=== PATIENT | female | born 1990 | race Caucasian/White ===

== ENCOUNTER 2020-10-20 16:59 | Outpatient (CLI) | payer OTHER ==
--- NOTE | 2020-10-21 08:39 | Ultrasound Report ---
PROCEDURE: OB First Trimester w/TV INDICATIONS: POSITIVE TEST OUTSIDE/PRIOR DATING DATA: Last menstrual period (LMP): 08/30/2020. LMP-based estimated date of delivery (JOSE): 06/06/2021. First dating scan (date and location): This study. Estimated date of delivery (JOSE) from first dating scan: 06/14/2021. TECHNIQUE: Real-time scanning was performed of the fetus and maternal pelvic organs, with image documentation. Endovaginal scanning was also performed to better visualize the fetus and maternal ovaries. COMPARISON: None FINDINGS: Embryo: There is a single living intrauterine gestation with crown-rump length 4 mm which correlates with a gestational age of 6 weeks 1 day, +/- 5 days. cardiac activity at 131 bpm is present. N ote is made of what appears to be a small subchorionic hemorrhage adjacent to the gestational sac syed suring 2.5 x 2.1 x 4.4 cm Measurement variability in dating: +/- 4 weeks by LMP, +/- 7 days by mean sac diameter (use before 6 weeks gestation if crown-rump length not able to be measured), +/- 5 days by crown-rump length (6-12 weeks gestation). Maternal organs: Ovaries normal considering gestational status.. IMPRESSION: Single living intrauterine gestation, with current estimated gestational age of 6 weeks 1 day and del anh date project be centered on 06/14/2021, +/- 5 days. Small adjacent subchorionic hemorrhage ( "i mplantation hemorrhage"). Reviewed by: Henry Duval MD on 10/21/2020 8:38 AM PDT Approved by: Henry Duval MD on 10/21/2020 8:38 AM PDT Station ID: [id number]
== END 2020-10-20 17:00 | disposition home or self-care (01) ==
LOC: DI 16:59
PROVIDERS: ATTEND Advanced Practice Midwife
DX: O20.9 Hemorrhage in early pregnancy, unspecified (principal); Z3A.01 Less than 8 weeks gestation of pregnancy

== ENCOUNTER 2020-10-31 08:00 | Outpatient (CLI) | payer OTHER ==
[2020-10-31 19:32] LABS: MUDS CUTOFF CONCENTRATIONS CUTOFF CONC BELOW:
[2020-10-31 19:45] LABS: BILIRUBIN,URINE NEGATIVE (NEGATIVE); GLUCOSE, URINE (UA) NEGATIVE (NEGATIVE); KETONES,URINE (UA) TRACE mg/dL (NEGATIVE); LEUKOCYTE ESTERASE, URINE NEGATIVE (NEGATIVE); NITRITE,URINE NEGATIVE (NEGATIVE); OCCULT BLOOD,URINE NEGATIVE (NEGATIVE); PH,URINE 7.5 PH (5.0-7.5); PROTEIN,URINE NEGATIVE (NEGATIVE); UROBILINOGEN,URINE 0.2 (NORMAL) E.U./dL (NORMAL)
[2020-10-31 19:48] LABS: CLARITY,URINE CLOUDY (CLEAR)
[2020-10-31 19:57] LABS: AMPHETAMINE SCREEN,URINE NEGATIVE (NEGATIVE); BARBITURATE SCREEN,UR NEGATIVE (NEGATIVE); BENZODIAZEPINES SCREEN, URINE NEGATIVE (NEGATIVE); COCAINE SCREEN URINE NEGATIVE (NEGATIVE); METHADONE SCREEN, URINE NEGATIVE (NEGATIVE); METHAMPHETAMINES SCREEN, URINE NEGATIVE (NEGATIVE); OPIATE SCREEN, URINE NEGATIVE (NEGATIVE); OXYCODONE SCREEN, URINE NEGATIVE (NEGATIVE); PROPOXYPHENE SCREEN, URINE NEGATIVE (NEGATIVE); THC CANNABINOID SCREEN, URINE NEGATIVE (NEGATIVE); TRICYCLIC ANTIDEPRESSANT,URINE NEGATIVE (NEGATIVE)
[2020-10-31 20:04] LABS: AMORPHOUS SEDIMENT,UR Few /LPF; BACTERIA,URINE Rare /HPF (None Seen); RBC,URINE None Seen /HPF (0-5); SQUAMOUS EPITHELIAL CELL,UR FEW Squamous (<= Few); WBC,URINE 0-3 /HPF (0-5)
== END 2020-10-31 23:59 | disposition home or self-care (01) ==
LOC: LAB.R 08:00
PROVIDERS: ATTEND Advanced Practice Midwife
DX: Z34.90 Encounter for supervision of normal pregnancy, unspecified, unspecified trimester (principal); Z36.89 Encounter for other specified antenatal screening
CPT/HCPCS: 80306; 81001; 87086

== ENCOUNTER 2020-11-29 13:32 | Outpatient (CLI) | payer OTHER ==
[2020-11-29 13:55] LABS: BASOPHILS # (AUTO) 0.1 10^3/uL (0.0-0.1); BASOPHILS % (AUTO) 0.5 %; EOSINOPHILS # (AUTO) 0.6 10^3/uL (0.0-0.7); EOSINOPHILS % (AUTO) 6.4 %; HCT - HEMATOCRIT 36.9 % (37.0-47.0); HGB - HEMOGLOBIN 12.5 g/dL (12.0-16.0); LYMPHOCYTES # (AUTO) 1.4 10^3/uL (1.5-3.5); LYMPHOCYTES % (AUTO) 14.1 %; MEAN CORPUSCULAR HEMOGLOBIN 30.3 pg (27.0-31.0); MEAN CORPUSCULAR HGB CONC 33.9 g/dL (32.0-36.0); MEAN CORPUSCULAR VOLUME 89.3 fL (81.0-99.0); MEAN PLATELET VOLUME 10.7 fL (7.9-10.8); MONOCYTES # (AUTO) 0.6 10^3/uL (0.0-1.0); MONOCYTES % (AUTO) 6.1 %; NEUTROPHILS % (AUTO) 72.6 %; PLT - PLATELET COUNT 250 10^3/uL (130-450); RED BLOOD COUNT 4.13 10^6/uL (4.20-5.40); RED CELL DISTRIBUTION WIDTH 12.7 % (12.0-15.0); WHITE BLOOD COUNT 9.7 x10^3/uL (4.8-10.8)
[2020-11-30 11:12] LABS: HEPATITIS B SURFACE ANTIGEN NON-REACTIVE (NON-REACTIVE); HEPATITIS C ANTIBODY NON-REACTIVE (NON-REACTIVE)
[2020-11-30 15:21] LABS: HIV AG/AB 4TH GEN NON-REACTIVE (NON-REACTIVE)
== END 2020-11-29 13:33 | disposition home or self-care (01) ==
LOC: LAB 13:32
PROVIDERS: ATTEND Radiology Diagnostic Radiology
DX: Z34.00 Encounter for supervision of normal first pregnancy, unspecified trimester (principal); Z36.89 Encounter for other specified antenatal screening
CPT/HCPCS: 36415; 85025; 86592; 86762; 86769; 86787; 86803; 86850; 86900; 86901; 87340; 87389

== ENCOUNTER 2021-01-25 13:45 | Outpatient (CLI) | payer OTHER ==
--- NOTE | 2021-01-26 16:22 | Ultrasound Report ---
PROCEDURE: OB Detailed Eval INDICATIONS: SUPERVISION NORMAL OUTSIDE/PRIOR DATING DATA: Last menstrual period (LMP): 08/30/2020. LMP-based estimated date of delivery (JOSE): 06/06/2021. First dating scan (date and location): 10/20/2020. Estimated date of delivery (JOSE) from first dating scan: 06/14/2021. The below data below was generated using the ultrasound JOSE of 06/14/2021 TECHNIQUE: Real-time scanning was performed of the fetus, with image documentation and biometric measurements. Endovaginal scanning: COMPARISON: 10/20/2020. FINDINGS: General: A single living intrauterine gestation is present. Presentation: Vertex Placenta: Placental position is posterior, without previa. Amniotic fluid index: 14.0 cm, 5-24 cm normal.. heart rate: 145 beats per minute. Maternal cervical canal: Closed and 5.2 cm long; normal length is 2.5 cm or more. biometrics: Biparietal diameter: 20 weeks 1 day Head circumference: 19 weeks 6 days Abdominal circumference: 20 weeks 1 day Femur length: 19 weeks 6 days Estimated gestational age from initial scan: 20 weeks 0 days. Composite gestational age from present scan: 20 weeks 0 days Estimated weight and percentile: 335 g; 54th percentile Measurement variability in biometric dating: +/- 10 days from 12-20 weeks gestation, +/- 2 weeks from 20-30 weeks gestation, +/- 3 weeks at 30 weeks gestation or later. Anatomic survey: Neuro: Ventricles are normal at less than 10 mm. Cisterna magna is normal at 3-11 mm. Cerebellum i s normal in size and morphology. Nuchal skin fold: Normal at less than 6 mm between 14 and 20 weeks gestational age. Face: Nose and lips, facial profile are normal. Spine: No evidence for spina bifida. Heart: 4-chambered heart is present with normal ventricular outflow tracts. Diaphragm: Diaphragm is intact. Stomach: Left-sided stomach is present. Kidneys: No hydronephrosis. Normal is less than 5 mm in 2nd trimester, less than 7 mm in 3rd trimester. Cord: 3 vessel cord has orthotopic insertion. Bladder: Normal in size. Extremities: All 4 extremities are visualized. IMPRESSION: 1. Single living intrauterine gestation with appropriate interval growth. 2. Normal anatomic survey. Reviewed by: Isela Calhoun MD, PhD on 01/26/2021 4:21 PM PDT Approved by: Isela Calhoun MD, PhD on 01/26/2021 4:21 PM PDT Station ID: [id number]
== END 2021-01-25 13:46 | disposition home or self-care (01) ==
LOC: DI 13:45
PROVIDERS: ATTEND Nurse Practitioner Obstetrics & Gynecology
DX: Z34.02 Encounter for supervision of normal first pregnancy, second trimester (principal)

== ENCOUNTER 2021-03-20 10:30 | Outpatient (CLI) | payer OTHER ==
[2021-03-20 11:45] LABS: BASOPHILS # (AUTO) 0.1 10^3/uL (0.0-0.1); BASOPHILS % (AUTO) 0.5 %; EOSINOPHILS # (AUTO) 0.3 10^3/uL (0.0-0.7); EOSINOPHILS % (AUTO) 3.7 %; HCT - HEMATOCRIT 37.3 % (37.0-47.0); HGB - HEMOGLOBIN 12.6 g/dL (12.0-16.0); LYMPHOCYTES # (AUTO) 1.4 10^3/uL (1.5-3.5); LYMPHOCYTES % (AUTO) 15.3 %; MEAN CORPUSCULAR HEMOGLOBIN 31.2 pg (27.0-31.0); MEAN CORPUSCULAR HGB CONC 33.8 g/dL (32.0-36.0); MEAN CORPUSCULAR VOLUME 92.3 fL (81.0-99.0); MEAN PLATELET VOLUME 10.4 fL (7.9-10.8); MONOCYTES # (AUTO) 0.5 10^3/uL (0.0-1.0); MONOCYTES % (AUTO) 5.8 %; NEUTROPHILS # (AUTO) 6.8 10^3/uL (1.5-6.6); NEUTROPHILS % (AUTO) 73.7 %; PLT - PLATELET COUNT 226 10^3/uL (130-450); RED BLOOD COUNT 4.04 10^6/uL (4.20-5.40); RED CELL DISTRIBUTION WIDTH 12.8 % (12.0-15.0); WHITE BLOOD COUNT 9.2 x10^3/uL (4.8-10.8)
== END 2021-03-20 10:31 | disposition home or self-care (01) ==
LOC: LAB 10:30
PROVIDERS: ATTEND Nurse Practitioner Obstetrics & Gynecology
DX: Z34.90 Encounter for supervision of normal pregnancy, unspecified, unspecified trimester (principal); Z36.89 Encounter for other specified antenatal screening
CPT/HCPCS: 36415; 82950; 85025

== ENCOUNTER 2021-05-17 08:00 | Outpatient (CLI) | payer OTHER | END 2021-05-17 23:55 | disposition home or self-care (01) | LOC: LAB.WC 08:00 | PROVIDERS: ATTEND Nurse Practitioner Obstetrics & Gynecology | DX: Z36.85 Encounter for antenatal screening for Streptococcus B (principal) | CPT/HCPCS: 87797 ==

== ENCOUNTER 2021-06-21 07:30 | Inpatient (IN) | payer OTHER ==
[2021-06-21] MEDS ORDERED: OXYTOCIN/SODIUM CHLORIDE 500 ML IV PRN (08:29)
[2021-06-21] MEDS ORDERED: LIDOCAINE-MPF 1% 30 ML VIAL ID PRN (08:29)
[2021-06-21] MEDS ORDERED: CARBOPROST TROMETHAMINE 250 MCG/ML AMP IM PRN (08:29)
[2021-06-21] MEDS ORDERED: ONDANSETRON 4 MG/2 ML VIAL IVP PRN ×3 (08:29→17:41)
[2021-06-21] MEDS ORDERED: miSOPROStoL 200 MCG TABLET BC PRN (08:29)
[2021-06-21] MEDS ORDERED: OXYTOCIN 10 UNIT/ML VIAL IM PRN (08:29)
[2021-06-21] MEDS ORDERED: SODIUM CHLORIDE FLUSH 0.9% 10 ML SYRINGE IVP PRN (08:29)
[2021-06-21] MEDS ORDERED: METHYLERGONOVINE 0.2 MG/ML VIAL IM PRN (08:29)
[2021-06-21] MEDS ORDERED: fentaNYL 100 MCG/2 ML VIAL IVP PRN (08:29)
[2021-06-21] MEDS ORDERED: TRANEXAMIC ACID IN NACL 1,000 MG/100 ML BAG IV PRN (08:29)
--- NOTE | 2021-06-21 08:33 | HISTORY & PHYSICAL EXAMINATION ---
Admit History - Visit Reason Visit Reason: Other - : 2 Parity: 1 Premature: 0 Ectopic: 0 : 0 Care: positive: [facility] Risk/History: positive: None Complications This : positive: None Smoking Status: Never smoker - Mother's Labs Mother's Blood Type: positive: AB Mother's RH: positive: Positive GBS: positive: Group B Step Negative Rubella Status: positive: Immune Review of Systems - Constitutional Constitutional: denies: Fever, Chills, Malaise - Eyes Eyes: denies: Blurred vision, Spots in vision, Dipolpia - Cardiovascular Cariovascular: denies: Irregular heart rate, Palpitations, Chest pain, Edema - Respiratory Respiratory: denies: Cough, SOB at rest - Integumentary Integumentary: denies: Rash, Pruritis - Neurological Neurological: denies: Headache Physical - Abdominal Exam Contraction Frequency (min/apart): intermittent Contraction Intensity: positive: Mild Uterine Resting Tone: positive: Soft - Monitoring Heart Rate Baseline: 150 Strip Review: positive: Category I - Presentation Presentation: positive: Vertex - Vaginal Exam Membranes: positive: Membranes intact Dilation (in cm): 3-4 Effacement (%): 75 Station: positive: -2 Cervical Position: positive: Posterior - Speculum Exam Speculum Exam Performed: positive: No Plan for Labor - Plan For Labor I expect patient to be DC'd or transferred within 96 hours.: Yes Plan for Labor: Demetrice is a 30yo @ 41.0wks gestation by 6.1wk U/S who presents today to [facility] for medical induction of labor secondary to postdates . Upon arrival she is noted to have occasional contractions which she does not feel. SVE 3-4/75/-2, posterior, soft, and vertex. AROM occurred at 0822 and was noted to be a small amount of clear fluid. She is supported by her her Ildefonso today and her mood is good. She has been a patient of [facility] for the duration of her which has remained uncomplicated. She has been admitted for medical induction of labor. AROM will be followed by 4 hours of expectant management and then initiation of pitocin with titration per protocol if needed. She denies questions or concerns at this time. Dating criteria: LMP 08/30/2020 (JOSE by LMP 06/06/2021) Initial U/S @ 6.1wks not c/w LMP dating (JOSE by initial U/S 06/14/2021) Serial exams - agree OB Hx: G1: 06/06/2018 @ 41.0wks gestation, epidural. Female 6lb8oz. 2nd degree laceration - uncomplicated G2: Current Medications: PNV; probiotic PRN Allergies: NKDA PMHx: no significant Surgical Hx: Repair broken femur (1996) Social Hx: Never smoker. No ETOH or IVDA. Ildefonso. Family Hx: Strove/CVA - PGM, PGF; Arthritis - PGM; Esophageal cancer - MGF course: LMP 08/30/2020 JOSE by LMP Initial ultrasound @ 6.1wks gestation not c/w LMP dating. JOSE by initial ultrasound 06/14/2021. Final JOSE 06/14/2021 AB pos/Rubella equivocal VZV: non-immune Genetic testing: declined FAS: Posterior placenta. Efw 54%. 3VC. ERIKA 14.0 Glucola- 124 Influenza: 04/27/21 COVID VACC- YES, 02/08, 03/06 TDAP 03/23 GBS @ 36 wks- NEGATIVE HSV: denies self and partner Breast pump Rx- declines MOD: . FOB Ildefonso. 2.5yo [place]. Girl: Zhane. "Wait and see" pp contraception: NFP. Withdrawal. Accepting of if happens. pap: 10/31/2020- WNL Physical Exam: Normocephalic, atraumatic Heart RRR w/o M/G/R Lungs CTAB Abdomen gravid, soft, nontender EFW 3400g FHR baseline 150, moderate variability, + accels, no decels Contractions palpate mild occasionally and are not appreciated by pt. SVE 3-4/75/-2, posterior, soft. Vertex. AROM occurred at 0822 and was noted to be a small amount of clear fluid. Bilateral LE's trace edema. Mood is good. Assessment: 30yo @ 41.0wks gestation by 6.1wk U/S Postdates Medical induction of labor GBS neg FHR Category I Plan: Expectant management x 4 hours followed by initiation of pitocin for labor augmentation with titration per protocol PRN. Continuous monitoring Encouraged ambulation and position changes. Jacuzzi PRN. Nitrous oxide PRN. Epidural per maternal request. Anticipate . Pt verbalized understanding and agrees to above plan. She denies further questions or concerns at this time.
[2021-06-21 09:25] LABS: BASOPHILS # (AUTO) 0.1 10^3/uL (0.0-0.1); BASOPHILS % (AUTO) 0.6 %; EOSINOPHILS # (AUTO) 0.3 10^3/uL (0.0-0.7); EOSINOPHILS % (AUTO) 2.6 %; HGB - HEMOGLOBIN 12.4 g/dL (12.0-16.0); LYMPHOCYTES # (AUTO) 1.7 10^3/uL (1.5-3.5); LYMPHOCYTES % (AUTO) 16.1 %; MEAN CORPUSCULAR HEMOGLOBIN 30.2 pg (27.0-31.0); MEAN CORPUSCULAR HGB CONC 32.6 g/dL (32.0-36.0); MEAN CORPUSCULAR VOLUME 92.5 fL (81.0-99.0); MEAN PLATELET VOLUME 11.2 fL (7.9-10.8); MONOCYTES # (AUTO) 0.7 10^3/uL (0.0-1.0); MONOCYTES % (AUTO) 6.4 %; NEUTROPHILS # (AUTO) 7.8 10^3/uL (1.5-6.6); NEUTROPHILS % (AUTO) 73.5 %; PLT - PLATELET COUNT 237 10^3/uL (130-450); RED BLOOD COUNT 4.11 10^6/uL (4.20-5.40); RED CELL DISTRIBUTION WIDTH 13.3 % (12.0-15.0); WHITE BLOOD COUNT 10.6 x10^3/uL (4.8-10.8)
[2021-06-21] MEDS ORDERED: OXYTOCIN/SODIUM CHLORIDE 500 ML IV SCH (13:00)
[2021-06-21] MEDS: LACTATED RINGERS 1,000 ML IV SCH ×2 (13:10→18:06)
[2021-06-21] MEDS: SODIUM CHLORIDE FLUSH 0.9% 10 ML SYRINGE IVP SCH ×2 (13:13→15:32)
[2021-06-21] MEDS ORDERED: ROPIVACAINE 0.2% 200 MG/100 ML BAG EP ONE (16:56)
[2021-06-21] MEDS ORDERED: NALBUPHINE 10 MG/ML AMP IVP PRN ×2 (17:40→17:41)
[2021-06-21] MEDS ORDERED: diphenhydrAMINE INJ 50 MG/ML VIAL IVP PRN ×2 (17:40→17:41)
--- NOTE | 2021-06-21 17:40 | ANESTHESIA PROCEDURE NOTE ---
Anesthesia Epidural Template - Patient Report Patient Reports: positive: Pain controlled - Plan Plan: positive: Continue current management
--- NOTE | 2021-06-21 17:40 | ANESTHESIA ---
Pre-Anesthesia VS, & Labs - Diagnosis active labor - Procedure labor epidural Vital Signs: Temp Pulse Resp BP Pulse Ox 36.7 C 06/21/21 10:18 Height: 5 ft 4 in Weight (kg): 93.168 kg Body Mass Index: 35.2 BMI Classification: Obese - NPO Other Last Food Intake: ate lunch around noon - Is Patient ?: Yes - Lab Results Current Lab Results: Laboratory Tests 06/21/21 08:40: Blood Type AB POSITIVE, Antibody Screen NEGATIVE 06/21/21 08:40: WBC 10.6, RBC 4.11 L, Hgb 12.4, Hct 38.0, MCV 92.5, MCH 30.2, MCHC 32.6, RDW 13.3, Plt Count 237, MPV 11.2 H, Neut # (Auto) 7.8 H, Lymph # (Auto) 1.7, [place] # (Auto) 0.7, Eos # (Auto) 0.3, Baso # (Auto) 0.1, Absolute Nucleated RBC 0.00, Nucleated RBC % 0.0 Fish Bones: 06/21/21 08:40 Home Medications and Allergies Active Medications Carboprost Tromethamine (Carboprost Tromethamine 250 Mcg/Ml Amp) 250 mcg IM Q15M PRN PRN Reason: Step 4: Hemorrhage protocol Stop: 06/26/21 08:29 Fentanyl (Fentanyl 100 Mcg/2 Ml Vial) 50 mcg IVP Q1H PRN PRN Reason: PAIN Oxytocin/Sodium Chloride (Pitocin/Sodium Chloride) 500 mls @ 999 mls/hr IV PRN PRN; Protocol PRN Reason: POST- HEMORR PREVENTION Stop: 06/26/21 08:29 Tranexamic Acid (Tranexamic 1,000 Mg/100ml-Nacl) 1,000 mg in 100 mls @ 600 mls/hr IV .ONCE PRN PRN Reason: EBL >1200mL and within 3hr Stop: 06/26/21 08:29 Lactated Ringer's (Lr) 1,000 mls @ 100 mls/hr IV .Q10H INES Last Admin: 06/21/21 13:10 Dose: 100 mls/hr Documented by: Oxytocin/Sodium Chloride (Pitocin/Sodium Chloride) 500 mls @ 2 mls/hr IV TITR INES; Protocol Last Titration: 06/21/21 16:30 Dose: 8 milliunit/min, 8 mls/hr Documented by: Lidocaine HCl (Lidocaine-Mpf 1% 30 Ml Vial) 30 ml ID .ONCE PRN PRN Reason: PERINEAL REPAIR Stop: 06/26/21 08:29 Methylergonovine Maleate (Methylergonovine 0.2 Mg/Ml Vial) 0.2 mg IM .ONCE PRN PRN Reason: Step 2: Hemorrhage protocol Stop: 06/26/21 08:29 Misoprostol (Misoprostol 200 Mcg Tablet) 800 mcg BC .ONCE PRN PRN Reason: Step 3: Hemorrhage protocol Stop: 06/26/21 08:29 Ondansetron HCl (Ondansetron 4 Mg/2 Ml Vial) 4 mg IVP Q4HR PRN PRN Reason: Nausea / Vomiting Oxytocin (Oxytocin 10 Unit/Ml Vial) 10 unit IM .ONCE PRN PRN Reason: Step one: If no IV access Stop: 06/26/21 08:29 Sodium Chloride (Sodium Chloride Flush 0.9% 10 Ml Syringe) 10 ml IVP 0100,0900,1700 INES Last Admin: 06/21/21 15:32 Dose: Not Given Documented by: Sodium Chloride (Sodium Chloride Flush 0.9% 10 Ml Syringe) 10 ml IVP PRN PRN PRN Reason: NEEDED PER PROVIDER ORDERS Allergies/Adverse Reactions: Allergies Allergy/AdvReac Type Severity Reaction Status Date / Time No Known Drug Allergies Allergy Verified 06/21/21 11:03 Anes History & Medical History - Anesthetic History Anesthesia Complications: reports: No previous complications Family history of Anesthesia Complications: Denies Family history of Malignant Hyperthermia: Denies - Medical History Cardiovascular: reports: None Pulmonary: reports: None Smoking Status: Never smoker - Obstetrical History : 2 Parity: 1 Events: reports: None Complications: reports: None Exam General: Alert, Oriented x3, Cooperative Dental: WNL Mouth Openin Fingerbreadth Neck Mobility: Normal Mallampati classification: II Thyromental Distance: 4-6 cm Respiratory: Lungs clear Cardiovascular: Regular rate Plan Anesthesia Type: Epidural Consent for Procedure(s) Verified and Reviewed: Yes Code Status: Attempt Resuscitation ASA classification: 2-Mild systemic disease Is this case an emergency?: No
[2021-06-21] MEDS ORDERED: ROPIVACAINE 0.2% 200 MG/100 ML BAG EP PRN (17:41)
[2021-06-21] MEDS ORDERED: fentaNYL 100 MCG/2 ML VIAL ONE (19:38)
[2021-06-21] MEDS ORDERED: SODIUM CHLORIDE 0.9% 10 ML VIAL IVP ONE (19:38)
[2021-06-21] MEDS ORDERED: LIDOCAINE-PF 2% 10 ML AMP SUBQ ONE (19:39)
--- NOTE | 2021-06-21 19:41 | ANESTHESIA PROCEDURE NOTE ---
Anesthesia Epidural Template - Patient Report Patient Reports: positive: Inadequate control - Other Comments Other Comments: Patient rates contraction pain 8/10 with right side more painful compared to left. Epidural dosed with 5ml of 2% lidocaine, 100 mcg fentanyl, and 3ml of PF NS. After bolus, patient improved and rates pain 3/10.
--- NOTE | 2021-06-21 20:02 | PROVIDER PROGRESS NOTE ---
Labor Progress Note - Uterine Monitoring Uterine Monitoring Mode: positive: External toco Contraction Frequency (min/apart): 2-3 Contraction Intensity: positive: Strong Uterine Resting Tone: positive: Soft - Monitoring Monitor Mode: positive: External ultrasound Heart Rate Baseline: 145 Heart Rate Variability: positive: Moderate (6-25 bmp) Accelerations: positive: Present, 15x15 Decelerations: positive: None, Variable, Intermittent (<50% x20 min) Strip Review: positive: Category I - Vaginal Exam Dilation (in cm): 8 Effacement (%): 100 Station: 0 Cervical Position: Midposition - Labor Progress Note Labor Progress Note/Additional Text: S: Feeling comfortable with epidural. She desires to get a little sleep prior to pushing out a baby. supportive at the bedside. O: FHR baseline 145, moderate variability, + accels, no decels Contractions palpate strong every 2-4 minutes with soft resting tone SVE 8/100/0 Pitocin @ 8mU/mL A: 30yo @ 41.0wks gestation by 6.1wk U/S Postdates GBS neg Active labor P: Continue pitocin IOL with titration per protocol Continuous monitoring Maintain epidural for pain management. Anticipate .
[2021-06-21] MEDS ORDERED: HYDROCORTISONE 1% CREAM 28 GM TUBE PR PRN (21:21)
[2021-06-21] MEDS ORDERED: WITCH HAZEL/GLYCERIN 1 PAD TOP PRN (21:21)
--- NOTE | 2021-06-21 21:29 | DELIVERY NOTE ---
Delivery Note - Labor Labor: positive: Induced by oxytocin - Infant Delivery Method Delivery Method: positive: Spontaneous vaginal delivery - Presentation Presentation: positive: ROP - right occiput posterior - Nuchal Cord Nuchal Cord: positive: Present, Reduced - Amniotic Fluid Description Amniotic Fluid Description: positive: Clear - Episiotomy Type Episiotomy Type: positive: None - Laceration Laceration: positive: 1st degree - Suture Suture Type: positive: Vicryl Suture Size: positive: 2-0 - Delivery Outcome Delivery Outcome: positive: Livebirth - : positive: Placed in direct skin contact with mother, Bulb syringe, Stimulated, Warmed, [place] used [place] sex: positive: Female - Cord Cord: positive: 3 vessels - Placenta Placenta: positive: Intact, Spontaneous - Estimated Blood Loss Estimated Blood Loss (in cc): 200 - Post Delivery Events Post Delivery Events: positive: No post delivery events - Delivery Comments (Free Text/Narrative) Delivery Comments (Free Text/Narrative): Labor: This 30yo @ 41.0wks gestation by 6.1wk U/S presented [facility] 06/21/2021 @ 0730 for medical induction of labor secondary to postdates . Cervix was 3-4/75/-2, posterior and vertex. AROM occurred at 08 and was noted to be a small amount of clear fluid. FHR pattern demonstrated a Category I pattern throughout labor. Normal labor course. Pitocin initiated for labor augmentation for a maximum infusion rate of 8mU/mL. Pt progressed to c/c/+1 @ 2010 with onset of active pushing at 2014. : Normal of viable female named Zhane on 06/21/2021 @ 2028. Nuchal cord x 1 was easily reduced. The was placed on maternal abdomen, stimulated, dried, and placed skin to skin. Apgars were 8/8 at 1 and 5 minutes respectively. Pitocin initiated via IV for hemostasis. The umbilical cord was allowed to stop pulsating at which time it was doubly clamped by CNM and cut by FOB. 3VC. Cord blood was obtained. Fundal massage and gentle cord traction applied for active management of the third stage. Placenta delivered spontaneously and intact at 2037. EBL 200mL. Fourth stage: Uterine fundus firm and there is no excessive bleeding. The perineum, vagina, and cervix were inspected and noted to have a 1st degree perineal laceration which was repaired using a 2-[address]-1 needle, in standard fashion and under sterile conditions. Vaginal examination following repair was done. Tissues well approximated. initiated. Family bonding well. Both mother and baby were left in stable condition.
[2021-06-21] MEDS: ACETAMINOPHEN 500 MG TABLET PO SCH (22:17)
[2021-06-21] MEDS: IBUPROFEN 800 MG TABLET PO SCH (22:18)
[2021-06-21] MEDS: DOCUSATE SODIUM 100 MG CAPSULE PO SCH (22:18)
[2021-06-22] MEDS: IBUPROFEN 800 MG TABLET PO SCH ×4 (04:12→22:17)
[2021-06-22] MEDS: ACETAMINOPHEN 500 MG TABLET PO SCH ×3 (06:13→22:16)
[2021-06-22] MEDS: DOCUSATE SODIUM 100 MG CAPSULE PO SCH ×2 (08:59→22:16)
--- NOTE | 2021-06-22 12:26 | Discharge Plan ---
Discharge Plan Problem Reviewed?: Yes Disposition: Home, Self Care Condition: Good Diet: Regular Activity Restrictions: No Restrictions Shower Restrictions: No Driving Restrictions: No Instruction Topics: Vaginal After No Smoking: If you smoke, Please STOP! Call for help. Follow-up with: Mar Gallardo CNM, ARNP [Provider Admit Priv/Credential] - 1 Week
--- NOTE | 2021-06-22 12:34 | DISCHARGE SUMMARY ---
Discharge Summary Condition at Discharge: Good Discharge Disposition: 01 Home, Self Care - DIAGNOSES Admission Diagnoses: Date of Admission: 06/21/2021 Date of Discharge 06/22/2021 Diagnosis on Admission: 1. 30yo @ 41.0wks gestation by 6.1wk U/S 2. Postdates 3. Medical induction of labor 4. GBS neg 5. FHR Category I Diagnosis on Discharge 1. 30yo PPD#1 s/p TSVD viable female 2. 3. 1st degree laceration -intact 4. Normal recovery Brief History: She is a patient of [facility] who presented on 06/21/2021 for medical induction of labor secondary to postdates . SVE upon admission was 3-4/75/-2 and vertex. AROM occurred at 0822 for induction of labor followed by initiation of pitocin for labor augmentation with titration per protocol for a maximum infusion rate of 8mU/mL. She progressed to spontaneously deliver a viable female infant on 06/21/2021 @ 2028. Apgars were 8/8 at 1 and 5 minutes respectively. EBL 200mL. 1st degree perineal laceration was repaired in standard fashion and under sterile conditions. She has been doing well in her course. She is ambulating and tolerating a regular diet. She is urinating without difficulty and her lochia is normal. Her pain is well controlled with oral medications. She is without difficulty and she is bonding well with her baby. She desires to be discharged home today at 24 hours and feels very confident. She inten ds to follow up with myself at [facility] in 1 week for routine visit or sooner if needed. She has been given instructions to continue taking her vitamin while and to continue taking ibuprofen and tylenol OTC as needed for pain management. She has been given precautions to call if she has any worsening fevers, chills, abdominal pain, increased vaginal bleeding or foul smelling vaginal lochia. She verbalized understanding and agrees to above plan. She denies further questions or concerns at this time. Physical Exam: Normocephalic, atraumatic, heart RRR w/o M/G/R, lungs CTAB, abdomen soft and nontender with fundus firm at U, perineum intact, light lochia rubra, bilateral LE's trace edema. Mood is good. - ALLERGIES Allergies/Adverse Reactions: Allergies Allergy/AdvReac Type Severity Reaction Status Date / Time No Known Drug Allergies Allergy Verified 06/21/21 11:03 - LABS Result Diagrams: 06/21/21 08:40
[2021-06-22] MEDS ORDERED: VARICELLA VACCINE LIVE/PF 1,350 UNIT/0.5 ML VIAL SUBQ ONE (14:14)
[2021-06-22] MEDS ORDERED: MEASLES,MUMPS & RUBELLA VACC 0.5 ML VIAL SUBQ ONE (14:15)
[2021-06-22 22:20] VITALS: BP 128/77
== END 2021-06-22 22:30 | disposition home or self-care (01) | DRG 807 ==
LOC: WFO 07:30 → FBP 07:38 → WFO 08:28 → FBP 08:29
PROVIDERS: ADMIT Nurse Practitioner Obstetrics & Gynecology; ATTEND Nurse Practitioner Obstetrics & Gynecology
PROC: 10907ZC Drainage of Amniotic Fluid, Therapeutic from Products of Conception, Via Natural or Artificial Opening (ICD-10-PCS; principal; 2021-06-21)
PROC: 10E0XZZ Delivery of Products of Conception, External Approach (ICD-10-PCS; 2021-06-21)
PROC: 0HQ9XZZ Repair Perineum Skin, External Approach (ICD-10-PCS; 2021-06-21)
PROC: 3E033VJ Introduction of Other Hormone into Peripheral Vein, Percutaneous Approach (ICD-10-PCS; 2021-06-21)
DX: O48.0 Post-term pregnancy (principal); Z37.0 Single live birth; Z3A.41 41 weeks gestation of pregnancy; O70.0 First degree perineal laceration during delivery; O69.81X0 Labor and delivery complicated by cord around neck, without compression, not applicable or unspecified; O99.214 Obesity complicating childbirth
CPT/HCPCS: 36415; 85025; 86850; 86900; 86901; A9270; J7120

== ENCOUNTER 2021-06-26 17:20 | Observation (INO) | payer OTHER ==
--- NOTE | 2021-06-26 18:54 | ED Physician Documentation ---
History of Present Illness - Stated complaint Stated Complaint: HIP PX - Chief complaint Chief Complaint: Ext Problem - History obtained from History obtained from: Patient - Additonal information Additional information: now 5 days . C/O R hip pain posterior since hospital discharge. Much worse with walking. No hx hip issues. She has been noted to be hypertensive in the emergency department but denies headache, scotomata, seizures, urinary complaints or pedal edema. She did have an epidural. Seemed uncomplicated. Review of Systems Constitutional: denies: Fever, Chills Nose: reports: Reviewed and negative Cardiac: reports: Reviewed and negative Respiratory: reports: Reviewed and negative PD PAST MEDICAL HISTORY - Past Medical History Cardiovascular: None Respiratory: None - Allergies Allergies/Adverse Reactions: Allergies Allergy/AdvReac Type Severity Reaction Status Date / Time No Known Drug Allergies Allergy Verified 06/26/21 17:28 - Social History Smoking Status: Never smoker PD ED PE NORMAL - Vitals Vital signs reviewed: Yes - General General: Alert and oriented X 3, No acute distress - HEENT HEENT: PERRL, EOMI - Neck Neck: Supple, no meningeal sign, No bony TTP - Cardiac Cardiac: RRR, No murmur - Respiratory Respiratory: No respiratory distress, Clear bilaterally - Abdomen Abdomen: Non tender - Back Back: No CVA TTP, No spinal TTP, Other (She points to the right low back above the pelvic brim as the site of pain. The hip itself on the right is nontender no pain with internal or external rotation. No midline spinal tenderness no reproducible tenderness of the back.) - Derm Derm: Normal color, Warm and dry - Extremities Extremities: No edema, Other (The patient has equal and normal Achilles and patellar reflexes bilaterally. Normal sensation in all areas of the legs. Patient denies saddle anesthesia. Normal strength in flexion-extension at the ankles, knees, and flexion of the hips.) - Neuro Neuro: Alert and oriented X 3, Normal speech Results - Vitals Vitals: Vital Signs - 24 hr 06/26/21 06/26/21 06/26/21 17:28 18:48 20:45 Temperature 36.8 C Heart Rate 82 58 L 72 Respiratory 16 16 18 Rate Blood Pressure 158/91 H 161/92 H 142/68 H O2 Saturation 98 98 98 Oxygen O2 Source Room air - Labs Labs: Laboratory Tests 06/26/21 06/26/21 06/26/21 19:09 19:09 19:21 WBC 8.9 RBC 4.36 Hgb 13.4 Hct 40.2 MCV 92.2 MCH 30.7 MCHC 33.3 RDW 12.9 Plt Count 270 MPV 10.1 Neut # (Auto) 5.9 Lymph # (Auto) 1.8 [place] # (Auto) 0.7 Eos # (Auto) 0.4 Baso # (Auto) 0.1 Absolute Nucleated RBC 0.00 Nucleated RBC % 0.0 Sodium 136 Potassium 3.7 Chloride 102 Carbon Dioxide 26 Anion Gap 8.0 BUN 15 Creatinine 0.6 Estimated GFR (MDRD) 116 Glucose 98 Calcium 8.7 Total Bilirubin 0.5 AST 19 ALT 30 Alkaline Phosphatase 105 Total Protein 6.8 Albumin 3.2 Globulin 3.6 Albumin/Globulin Ratio 0.9 L Urine Color YELLOW Urine Clarity CLEAR Urine pH 7.0 Ur Specific [place] 1.020 Urine Protein NEGATIVE Urine Glucose (UA) NEGATIVE Urine Ketones NEGATIVE Urine Occult Blood MODERATE H Urine Nitrite NEGATIVE Urine Bilirubin NEGATIVE Urine Urobilinogen 0.2 (NORMAL) Ur Leukocyte Esterase NEGATIVE Urine RBC TNTC H Urine WBC 4-5 Ur Squamous Epith Cells RARE Squamous Urine Bacteria Rare Urine Mucus Few Strands Ur Microscopic Review INDICATED Urine Culture Comments NOT INDICATED U Random Total Protein 06/26/21 19:21 WBC RBC Hgb Hct MCV MCH MCHC RDW Plt Count MPV Neut # (Auto) Lymph # (Auto) [place] # (Auto) Eos # (Auto) Baso # (Auto) Absolute Nucleated RBC Nucleated RBC % Sodium Potassium Chloride Carbon Dioxide Anion Gap BUN Creatinine Estimated GFR (MDRD) Glucose Calcium Total Bilirubin AST ALT Alkaline Phosphatase Total Protein Albumin Globulin Albumin/Globulin Ratio Urine Color Urine Clarity Urine pH Ur Specific [place] Urine Protein Urine Glucose (UA) Urine Ketones Urine Occult Blood Urine Nitrite Urine Bilirubin Urine Urobilinogen Ur Leukocyte Esterase Urine RBC Urine WBC Ur Squamous Epith Cells Urine Bacteria Urine Mucus Ur Microscopic Review Urine Culture Comments U Random Total Protein 12 PD MEDICAL DECISION MAKING - ED course ED course: 30-year-old woman who is 5 days presents with hip pain that actually sounds like sciatica radiating from the posterior pelvic brim down into the buttock with some tingling in the leg. Examination is otherwise unremarkable but noted to be significantly hypertensive in the department. Records reviewed, she was not hypertensive during her recent stay for her giving . Labs are unremarkable from a preeclampsia/help standpoint, but her case was discussed by phone with Dr. Anderson, the retail loss prevention investigator on-call. She has had multiple systolics over 160 and when documents were learned of this she asked me to load her with magnesium and give her nifedipine 10 mg p.o. x1 and she plans to place the patient observation for magnesium loading and medication management. Departure - Departure Disposition: ED Place in Observation Clinical Impression: hypertension, Right sided sciatica Condition: Fair
[2021-06-26] MEDS ORDERED: HYDROcod/ACETAM 5/325 MG TABLET PO STA (19:00)
[2021-06-26 19:14] LABS: BASOPHILS # (AUTO) 0.1 10^3/uL (0.0-0.1); BASOPHILS % (AUTO) 0.7 %; EOSINOPHILS # (AUTO) 0.4 10^3/uL (0.0-0.7); EOSINOPHILS % (AUTO) 4.9 %; HCT - HEMATOCRIT 40.2 % (37.0-47.0); HGB - HEMOGLOBIN 13.4 g/dL (12.0-16.0); LYMPHOCYTES # (AUTO) 1.8 10^3/uL (1.5-3.5); MEAN CORPUSCULAR HEMOGLOBIN 30.7 pg (27.0-31.0); MEAN CORPUSCULAR HGB CONC 33.3 g/dL (32.0-36.0); MEAN CORPUSCULAR VOLUME 92.2 fL (81.0-99.0); MEAN PLATELET VOLUME 10.1 fL (7.9-10.8); MONOCYTES # (AUTO) 0.7 10^3/uL (0.0-1.0); MONOCYTES % (AUTO) 7.7 %; NEUTROPHILS # (AUTO) 5.9 10^3/uL (1.5-6.6); NEUTROPHILS % (AUTO) 66.4 %; PLT - PLATELET COUNT 270 10^3/uL (130-450); RED BLOOD COUNT 4.36 10^6/uL (4.20-5.40); RED CELL DISTRIBUTION WIDTH 12.9 % (12.0-15.0); WHITE BLOOD COUNT 8.9 x10^3/uL (4.8-10.8)
[2021-06-26 19:26] LABS: ALBUMIN 3.2 g/dL (3.2-5.5); ALBUMIN/GLOBULIN RATIO 0.9 (1.0-2.2); BILIRUBIN,TOTAL 0.5 mg/dL (0.2-1.0); CALCIUM 8.7 mg/dL (8.5-10.3); CREATININE 0.6 mg/dL (0.4-1.0); POTASSIUM 3.7 mmol/L (3.5-5.0); TOTAL PROTEIN 6.8 g/dL (6.7-8.2)
[2021-06-26 19:28] LABS: BILIRUBIN,URINE NEGATIVE (NEGATIVE); GLUCOSE, URINE (UA) NEGATIVE (NEGATIVE); KETONES,URINE (UA) NEGATIVE (NEGATIVE); LEUKOCYTE ESTERASE, URINE NEGATIVE (NEGATIVE); NITRITE,URINE NEGATIVE (NEGATIVE); OCCULT BLOOD,URINE MODERATE (NEGATIVE); PROTEIN,URINE NEGATIVE (NEGATIVE); UROBILINOGEN,URINE 0.2 (NORMAL) E.U./dL (NORMAL)
[2021-06-26 19:32] LABS: CLARITY,URINE CLEAR (CLEAR)
[2021-06-26 19:37] LABS: BACTERIA,URINE Rare /HPF (None Seen); MUCUS,URINE Few Strands; RBC,URINE TNTC /HPF (0-5); SQUAMOUS EPITHELIAL CELL,UR RARE Squamous (<= Few)
[2021-06-26] MEDS ORDERED: IOVERSOL 320 100 ML VIAL IVP ONE ×2 (20:21→21:07)
[2021-06-26] MEDS ORDERED: MAGNESIUM SULFATE 2 GRAM 2 GM/50 ML BAG IV ONE ×2 (20:59)
[2021-06-26] MEDS ORDERED: NIFEdipine 10 MG CAPSULE PO STA (21:03)
--- NOTE | 2021-06-26 21:03 | CT Report ---
PROCEDURE: Abdomen/Pelvis W INDICATIONS: low back pain, CONTRAST: IV CONTRAST: Optiray 320 ml: 100 PO CONTRAST: *NO PO CONTRAST TECHNIQUE: After the administration of contrast, 5 mm thick sections acquired from the diaphragms to the sym physis. 5 mm thick coronal and sagittal reformats were acquired. For radiation dose reduction, the following was used: automated exposure control, adjustment of mA and/or kV according to patient size . COMPARISON: None. FINDINGS: Image quality: Excellent. ABDOMEN: Lung bases: Lung bases are clear. Heart size is normal. Solid organs: Liver and spleen are normal in size and enhancement. Gallbladder Biliary system is non dilated. Pancreas enhances normally. No adrenal nodules. Kidneys demonstrate normal size an d enhancement, without hydronephrosis. Peritoneum and bowel: Bowel loops demonstrate normal wall thickness and caliber. No free fluid or a ir. Nodes and vessels: No retroperitoneal or mesenteric adenopathy by size criteria. Aorta and inferior vena cava are normal in size. Miscellaneous: No ventral hernias. PELVIS: Genitourinary: Bladder wall thickness is normal. Uterus is enlarged compatible with statu s. Miscellaneous: No inguinal hernias or adenopathy. Bones: No suspicious bony lesions. No vertebral body compression fractures. IMPRESSION: 1. No acute disease process. 2. Appendix is not visualized. No free fluid or inflammatory changes are identified adjacent to the c ecum. 3. No dilated loops of bowel. 4. No free fluid or air. 5. No hydronephrosis.. Reviewed by: Isela Calhoun MD, PhD on 06/26/2021 9:02 PM PST Approved by: Isela Calhoun MD, PhD on 06/26/2021 9:02 PM PST Station ID: [id number]
[2021-06-26] MEDS ORDERED: hydrALAZINE INJ 20 MG/ML VIAL IVP PRN ×2 (21:26)
[2021-06-26] MEDS ORDERED: LABETALOL 20 MG/4 ML SYRINGE IVP PRN ×2 (21:26)
[2021-06-26] MEDS ORDERED: ONDANSETRON 4 MG/2 ML VIAL IVP PRN (21:26)
[2021-06-26] MEDS ORDERED: SODIUM CHLORIDE FLUSH 0.9% 10 ML SYRINGE IVP PRN (21:26)
[2021-06-26] MEDS ORDERED: METOCLOPRAMIDE 10 MG/2 ML VIAL IVP PRN (21:26)
--- NOTE | 2021-06-26 21:30 | CT Report ---
PROCEDURE: LUMBAR SPINE W INDICATIONS: post back pain CONTRAST: IV CONTRAST: Optiray 320 ml: 100 CONTRAST: *NO PO CONTRAST TECHNIQUE: After the administration of intravenous Isovue contrast, 3 mm thick sections acquired from the T12 le kavya to the sacrum. Sagittal and coronal reformats were constructed. For radiation dose reduction, t he following was used: automated exposure control, adjustment of mA and/or kV according to patient s ize. COMPARISON: None. FINDINGS: Image quality: Excellent. Bones: There is normal bony alignment. No acute vertebral body compression fractures. No suspiciou s lytic or blastic bony lesions. No pars defects. Intervertebral disc height is normal in all levels . Soft tissues: No retroperitoneal masses or hematomas. Visualized aorta is normal in caliber. IMPRESSION: No fracture. No osseous lesion. If there is continued clinical concern for pathology, then MRI should be considered for further evaluation. Reviewed by: Isela Calhoun MD, PhD on 06/26/2021 9:28 PM PST Approved by: Isela Calhoun MD, PhD on 06/26/2021 9:28 PM PST Station ID: [email or web address]
[2021-06-26] MEDS ORDERED: LACTATED RINGERS 1,000 ML ONE (22:04)
[2021-06-26] MEDS: MAGNESIUM SULFATE 4 GRAM 4 GM/50 ML BAG IV ONE ×2 (22:15→23:40)
[2021-06-26] MEDS: LACTATED RINGERS 1,000 ML IV SCH (22:16)
--- NOTE | 2021-06-26 22:21 | HISTORY & PHYSICAL EXAMINATION ---
Chief Complaint - Chief Complaint Chief Complaint: pre-eclampsia History of Present Illness - Admitted From Admitted From:: ED - History Obtained From Records Reviewed: and labor/delivery records - History of Present Illness HPI Comment/Other: ID: Patient is a 30 yo about 5 days here with severe range blood pressures. HPI: Patient had a postdates IOL on 06/21/21 after an induction of labor for post dates. She had an uncomplicated course and uncomplicated delivery. She did have an epidural. She was discharged to home on PPD#1. She had normal blood pressures throughout and has no prior history of hypertension or pre-eclampsia. Today she developed debilitating pain in her lower back and down her right leg. Starts at top of tail bone and progresses through her right hip. No replicable with palpation per patient report. Pain has been limiting her activity at home. She notes that the pain has improved since arriving at the hospital. When she was undergoing evaluation for the pain, she was noted to have elevated blood pressures. She had systolic blood pressures in the 160s on at least 2 occasions more than 1 hour apart. She was given nifedipine 10 mg by mouth x1 in the ED. Blood pressures have been in high mild range since administration. PIH labs wnl, although her HCT is higher today than it was prior to delivery 5 days ago, suggesting hemoconcentration. Cristiano headache, vision change, RUQ pain. She is and supplementing with small amounts of formula. She is not in any pain at present. OB Hx: G1: 06/06/2018 @ 41.0wks gestation, epidural. Female 6lb8oz. 2nd degree laceration - uncomplicated G2: 06/21/2021 @41.0wks gestatation, epidural, female, 1st degree, uncomplicated Medications: PNV; probiotic PRN Allergies: NKDA PMHx: no significant Surgical Hx: Repair broken femur (1996) Social Hx: Never smoker. No ETOH or IVDA. Ildefonso. Family Hx: Stroke/CVA - PGM, PGF; Arthritis - PGM; Esophageal cancer - MGF ROS: As per HPI, otherwise remaining systems are normal. PE: VS: 97.9 109 152/88 18 96% GEN: NAD HEAD: NCAT EYES: No scleral icterus or conjunctival injection CV: RRR RESP: CTAB, normal effort ABD: S&NT/ND. NO RUQ TTP BACK: No TTP PSYCH: appropriate affect NEURO: alert and oriented, normal gait and coordination EXT:BLE edema, no TTP and symmetric A/P: 30 yo , now PPD#5, admitted with preeclampsia/HTN with severe features by BP criteria SEVERE RANGE PRESSURES: Has received nifedipine 10 mg po x1 with BPs currently in high normal range -No hx of asthma Started magnesium 4g bolus followed with 2g/hr infusion -Planning to start labetalol but has had bradycardic range heart rate Will start nifedipine 30 mg XL x1 now FEN: LR at 30 cc/hr or TKO -Reg diet VTE PPX: -SCDs given limited mobility for the next 24 hours in increased coagualability 2/2 status PAIN: Avoid ibuprofen. Acetaminophen ordered. Reviewed gabapentin may be appropriate for nerve pain. Declines pain meds at present. DISPO: Admitted for observation. -Plan for in-patient care for 24 hours of magnesium and then likely 24 hours of observation once magnesium is discontinued. History - Past Medical History Cardiovascular: reports: None Respiratory: reports: None Meds/Allgy - Allergies Allergies/Adverse Reactions: Allergies Allergy/AdvReac Type Severity Reaction Status Date / Time No Known Drug Allergies Allergy Verified 06/26/21 17:28 Exam - Vital Signs Vital Signs: Vital Signs x48h Temp Pulse Resp BP Pulse Ox 06/26/21 21:30 63 12 149/84 H 96 06/26/21 21:17 67 12 160/85 H 95 06/26/21 20:45 72 18 142/68 H 98 06/26/21 18:48 58 L 16 161/92 H 98 06/26/21 17:28 98.2 F 82 16 158/91 H 98 Conclusion/Plan - Lab Results Fish Bones: 06/26/21 19:09 06/26/21 19:09
[2021-06-26 22:54] LABS: B. PARAPERTUSSIS- RESP PCR PAN NOT DETECTED; B. PERTUSSIS- RESP PCR PANEL NOT DETECTED; C. PNEUMONIAE- RESP PCR PANEL NOT DETECTED; CORONAVIRUS 229E-RESP PCR NOT DETECTED; CORONAVIRUS HKU1-RESP PCR NOT DETECTED; CORONAVIRUS NL63-RESP PCR NOT DETECTED; CORONAVIRUS OC43-RESP PCR NOT DETECTED; HUMAN METAPNEUMOVIRUS NOT DETECTED; INFLUENZA A- RESP PCR PANEL NOT DETECTED; INFLUENZA B - RESP PCR PANEL NOT DETECTED; M. PNEUMONIAE- RESP PCR PANEL NOT DETECTED; PARAINFLUENZA VIRUS 1 NOT DETECTED; PARAINFLUENZA VIRUS 2 NOT DETECTED; PARAINFLUENZA VIRUS 3 NOT DETECTED; PARAINFLUENZA VIRUS 4 NOT DETECTED; RHINOVIRUS/ENTEROVIRUS NOT DETECTED; RSV- RESP PCR PANEL NOT DETECTED; SARS-CoV-2 -RESP PCR PANEL NOT DETECTED
[2021-06-26] MEDS: MAGNESIUM SULFATE IN WATER 20 GM/500 ML IV.SOLN IV SCH (23:40)
[2021-06-27] MEDS ORDERED: SODIUM CHLORIDE FLUSH 0.9% 10 ML SYRINGE IVP SCH (01:00)
[2021-06-27] MEDS: ACETAMINOPHEN 500 MG TABLET PO PRN ×3 (07:29→19:53)
[2021-06-27 08:38] LABS: BASOPHILS # (AUTO) 0.1 10^3/uL (0.0-0.1); BASOPHILS % (AUTO) 0.8 %; EOSINOPHILS # (AUTO) 0.4 10^3/uL (0.0-0.7); EOSINOPHILS % (AUTO) 4.9 %; HCT - HEMATOCRIT 42.9 % (37.0-47.0); HGB - HEMOGLOBIN 14.2 g/dL (12.0-16.0); LYMPHOCYTES # (AUTO) 1.5 10^3/uL (1.5-3.5); LYMPHOCYTES % (AUTO) 17.2 %; MEAN CORPUSCULAR HGB CONC 33.1 g/dL (32.0-36.0); MEAN CORPUSCULAR VOLUME 90.5 fL (81.0-99.0); MEAN PLATELET VOLUME 10.2 fL (7.9-10.8); MONOCYTES # (AUTO) 0.6 10^3/uL (0.0-1.0); MONOCYTES % (AUTO) 7.2 %; NEUTROPHILS # (AUTO) 6.1 10^3/uL (1.5-6.6); NEUTROPHILS % (AUTO) 69.3 %; PLT - PLATELET COUNT 269 10^3/uL (130-450); RED BLOOD COUNT 4.74 10^6/uL (4.20-5.40); WHITE BLOOD COUNT 8.8 x10^3/uL (4.8-10.8)
[2021-06-27 08:44] LABS: ALBUMIN 3.4 g/dL (3.2-5.5); ALBUMIN/GLOBULIN RATIO 0.9 (1.0-2.2); BILIRUBIN,TOTAL 0.9 mg/dL (0.2-1.0); CALCIUM 8.1 mg/dL (8.5-10.3); CREATININE 0.5 mg/dL (0.4-1.0); POTASSIUM 3.9 mmol/L (3.5-5.0); TOTAL PROTEIN 7.2 g/dL (6.7-8.2)
[2021-06-27] MEDS: MAGNESIUM SULFATE IN WATER 20 GM/500 ML IV.SOLN IV SCH ×2 (08:50→16:56)
--- NOTE | 2021-06-27 09:07 | PROVIDER PROGRESS NOTE ---
Subjective - Subjective Subjective: Patient doing well this a.m. Has a mild headache, but says this is more of a fullness. Thinks it may be from the magnesium. No change in vision or abdominal pain. Back\Leg pain is much improved, although this is worse when she has gotten up. Tolerating p.o. Breast pumping going well. Physical Constitutional: alert, no acute distress, well hydrated, well developed, well no urished, appropriate dress. Skin: normal turgor, normal color. Head: atraumatic, normocephalic. Cardiovascular: RRR. Respiratory: no respiratory distress. Abdomen: nondistended, nontender. Neurologic: normal, sensation intact, motor intact. 1+ DTR. No clonus. Psych: affect and mood appropriate, normal interaction, good eye contact Plan preeclampsi with severe features -Plan for 24 hours of magnesium. Patient has not required additional treatments, but has had a intermittently low pulse. Will evaluate if she has further increase in blood pressure. Did tolerate nifedipine, will consider adding long-acting nifedipine if this becomes a problem. -Most recent blood pressure 146/88. -Urine output remains adequate. -If patient remains stable, likely discharge tomorrow. Objective - Vital Signs/Intake & Output Vital Signs: Vital Signs x48h Temp Pulse Resp BP Pulse Ox 06/27/21 07:30 98.4 F 86 18 146/88 H 99 06/27/21 06:00 66 16 117/67 95 06/27/21 05:00 76 16 119/76 96 06/27/21 03:55 69 18 138/84 H 98 06/27/21 02:45 98.2 F 60 18 119/74 97 06/27/21 01:45 88 16 117/75 97 Intake & Output: Intake & Output 06/24/21 06/25/21 06/26/21 06/27/21 23:59 23:59 23:59 23:59 Intake Total 100 908.333 Output Total 1250 Balance 100 -341.667 - Lab Results Fish Bones: 06/27/21 08:20 06/27/21 08:20 Other Labs: Lab Results x24hrs 06/27/21 06/27/21 06/27/21 Range/Units 08:20 08:20 08:20 WBC 8.8 (4.8-10.8) x10^3/uL RBC 4.74 (4.20-5.40) 10^6/uL Hgb 14.2 (12.0-16.0) g/dL Hct 42.9 (37.0-47.0) % MCV 90.5 (81.0-99.0) fL MCH 30.0 (27.0-31.0) pg MCHC 33.1 (32.0-36.0) g/dL RDW 13.0 (12.0-15.0) % Plt Count 269 (130-450) 10^3/uL MPV 10.2 (7.9-10.8) fL Neut # (Auto) 6.1 (1.5-6.6) 10^3/uL Lymph # (Auto) 1.5 (1.5-3.5) 10^3/uL [place] # (Auto) 0.6 (0.0-1.0) 10^3/uL Eos # (Auto) 0.4 (0.0-0.7) 10^3/uL Baso # (Auto) 0.1 (0.0-0.1) 10^3/uL Absolute Nucleated RBC 0.00 x10^3/uL Nucleated RBC % 0.0 /100WBC Sodium 137 (135-145) mmol/L Potassium 3.9 (3.5-5.0) mmol/L Chloride 102 (101-111) mmol/L Carbon Dioxide 23 (21-32) mmol/L Anion Gap 12.0 (6-13) BUN 9 (6-20) mg/dL Creatinine 0.5 (0.4-1.0) mg/dL Estimated GFR (MDRD) 143 (>89) Glucose 93 (70-100) mg/dL Calcium 8.1 L (8.5-10.3) mg/dL Total Bilirubin 0.9 (0.2-1.0) mg/dL AST 23 (10-42) IU/L ALT 29 (10-60) IU/L Alkaline Phosphatase 108 (42-121) IU/L Total Protein 7.2 (6.7-8.2) g/dL Albumin 3.4 (3.2-5.5) g/dL Globulin 3.8 (2.1-4.2) g/dL Albumin/Globulin Ratio 0.9 L (1.0-2.2) Urine Color Urine Clarity (CLEAR) Urine pH (5.0-7.5) PH Ur Specific [place] (1.002-1.030) Urine Protein (NEGATIVE) mg/dL Urine Glucose (UA) (NEGATIVE) mg/dL Urine Ketones (NEGATIVE) mg/dL Urine Occult Blood (NEGATIVE) Urine Nitrite (NEGATIVE) Urine Bilirubin (NEGATIVE) Urine Urobilinogen (NORMAL) E.U./dL Ur Leukocyte Esterase (NEGATIVE) Urine RBC (0-5) /HPF Urine WBC (0-5) /HPF Ur Squamous Epith Cells (<= Few) Urine Bacteria (None Seen) /HPF Urine Mucus Ur Microscopic Review Urine Culture Comments U Random Total Protein mg/dL Nasal Adenovirus (PCR) Nasal B. parapertussis DNA (PCR) Nasal Coronavir 229E PCR Nasal Coronavir HKU1 PCR Nasal Coronavir NL63 PCR Nasal Coronavir OC43 PCR Nasal Enterovir/Rhinovir PCR Nasal Influenza B PCR Nasal Influenza A PCR Nasal Parainfluen 1 PCR Nasal Parainfluen 2 PCR Nasal Parainfluen 3 PCR Nasal Parainfluen 4 PCR Nasal RSV (PCR) Nasal B.pertussis DNA PCR Nasal C.pneumoniae (PCR) Danial Human Metapneumo PCR Nasal M.pneumoniae (PCR) Nasal SARS-CoV-2 (PCR) Acetaminophen 26 (10-30) ug/mL 06/26/21 06/26/21 06/26/21 Range/Units 21:22 19:21 19:21 WBC (4.8-10.8) x10^3/uL RBC (4.20-5.40) 10^6/uL Hgb (12.0-16.0) g/dL Hct (37.0-47.0) % MCV (81.0-99.0) fL MCH (27.0-31.0) pg MCHC (32.0-36.0) g/dL RDW (12.0-15.0) % Plt Count (130-450) 10^3/uL MPV (7.9-10.8) fL Neut # (Auto) (1.5-6.6) 10^3/uL Lymph # (Auto) (1.5-3.5) 10^3/uL [place] # (Auto) (0.0-1.0) 10^3/uL Eos # (Auto) (0.0-0.7) 10^3/uL Baso # (Auto) (0.0-0.1) 10^3/uL Absolute Nucleated RBC x10^3/uL Nucleated RBC % /100WBC Sodium (135-145) mmol/L Potassium (3.5-5.0) mmol/L Chloride (101-111) mmol/L Carbon Dioxide (21-32) mmol/L Anion Gap (6-13) BUN (6-20) mg/dL Creatinine (0.4-1.0) mg/dL Estimated GFR (MDRD) (>89) Glucose (70-100) mg/dL Calcium (8.5-10.3) mg/dL Total Bilirubin (0.2-1.0) mg/dL AST (10-42) IU/L ALT (10-60) IU/L Alkaline Phosphatase (42-121) IU/L Total Protein (6.7-8.2) g/dL Albumin (3.2-5.5) g/dL Globulin (2.1-4.2) g/dL Albumin/Globulin Ratio (1.0-2.2) Urine Color YELLOW Urine Clarity CLEAR (CLEAR) Urine pH 7.0 (5.0-7.5) PH Ur Specific [place] 1.020 (1.002-1.030) Urine Protein NEGATIVE (NEGATIVE) mg/dL Urine Glucose (UA) NEGATIVE (NEGATIVE) mg/dL Urine Ketones NEGATIVE (NEGATIVE) mg/dL Urine Occult Blood MODERATE H (NEGATIVE) Urine Nitrite NEGATIVE (NEGATIVE) Urine Bilirubin NEGATIVE (NEGATIVE) Urine Urobilinogen 0.2 (NORMAL) (NORMAL) E.U./dL Ur Leukocyte Esterase NEGATIVE (NEGATIVE) Urine RBC TNTC H (0-5) /HPF Urine WBC 4-5 (0-5) /HPF Ur Squamous Epith Cells RARE Squamous (<= Few) Urine Bacteria Rare (None Seen) /HPF Urine Mucus Few Strands Ur Microscopic Review INDICATED Urine Culture Comments NOT INDICATED U Random Total Protein 12 mg/dL Nasal Adenovirus (PCR) NOT DETECTED Nasal B. parapertussis DNA (PCR) NOT DETECTED Nasal Coronavir 229E PCR NOT DETECTED Nasal Coronavir HKU1 PCR NOT DETECTED Nasal Coronavir NL63 PCR NOT DETECTED Nasal Coronavir OC43 PCR NOT DETECTED Nasal Enterovir/Rhinovir PCR NOT DETECTED Nasal Influenza B PCR NOT DETECTED Nasal Influenza A PCR NOT DETECTED Nasal Parainfluen 1 PCR NOT DETECTED Nasal Parainfluen 2 PCR NOT DETECTED Nasal Parainfluen 3 PCR NOT DETECTED Nasal Parainfluen 4 PCR NOT DETECTED Nasal RSV (PCR) NOT DETECTED Nasal B.pertussis DNA PCR NOT DETECTED Nasal C.pneumoniae (PCR) NOT DETECTED Danial Human Metapneumo PCR NOT DETECTED Nasal M.pneumoniae (PCR) NOT DETECTED Nasal SARS-CoV-2 (PCR) NOT DETECTED Acetaminophen (10-30) ug/mL 06/26/21 06/26/21 Range/Units 19:09 19:09 WBC 8.9 (4.8-10.8) x10^3/uL RBC 4.36 (4.20-5.40) 10^6/uL Hgb 13.4 (12.0-16.0) g/dL Hct 40.2 (37.0-47.0) % MCV 92.2 (81.0-99.0) fL MCH 30.7 (27.0-31.0) pg MCHC 33.3 (32.0-36.0) g/dL RDW 12.9 (12.0-15.0) % Plt Count 270 (130-450) 10^3/uL MPV 10.1 (7.9-10.8) fL Neut # (Auto) 5.9 (1.5-6.6) 10^3/uL Lymph # (Auto) 1.8 (1.5-3.5) 10^3/uL Christian # (Auto) 0.7 (0.0-1.0) 10^3/uL Eos # (Auto) 0.4 (0.0-0.7) 10^3/uL Baso # (Auto) 0.1 (0.0-0.1) 10^3/uL Absolute Nucleated RBC 0.00 x10^3/uL Nucleated RBC % 0.0 /100WBC Sodium 136 (135-145) mmol/L Potassium 3.7 (3.5-5.0) mmol/L Chloride 102 (101-111) mmol/L Carbon Dioxide 26 (21-32) mmol/L Anion Gap 8.0 (6-13) BUN 15 (6-20) mg/dL Creatinine 0.6 (0.4-1.0) mg/dL Estimated GFR (MDRD) 116 (>89) Glucose 98 (70-100) mg/dL Calcium 8.7 (8.5-10.3) mg/dL Total Bilirubin 0.5 (0.2-1.0) mg/dL AST 19 (10-42) IU/L ALT 30 (10-60) IU/L Alkaline Phosphatase 105 (42-121) IU/L Total Protein 6.8 (6.7-8.2) g/dL Albumin 3.2 (3.2-5.5) g/dL Globulin 3.6 (2.1-4.2) g/dL Albumin/Globulin Ratio 0.9 L (1.0-2.2) Urine Color Urine Clarity (CLEAR) Urine pH (5.0-7.5) PH Ur Specific [place] (1.002-1.030) Urine Protein (NEGATIVE) mg/dL Urine Glucose (UA) (NEGATIVE) mg/dL Urine Ketones (NEGATIVE) mg/dL Urine Occult Blood (NEGATIVE) Urine Nitrite (NEGATIVE) Urine Bilirubin (NEGATIVE) Urine Urobilinogen (NORMAL) E.U./dL Ur Leukocyte Esterase (NEGATIVE) Urine RBC (0-5) /HPF Urine WBC (0-5) /HPF Ur Squamous Epith Cells (<= Few) Urine Bacteria (None Seen) /HPF Urine Mucus Ur Microscopic Review Urine Culture Comments U Random Total Protein mg/dL Nasal Adenovirus (PCR) Nasal B. parapertussis DNA (PCR) Nasal Coronavir 229E PCR Nasal Coronavir HKU1 PCR Nasal Coronavir NL63 PCR Nasal Coronavir OC43 PCR Nasal Enterovir/Rhinovir PCR Nasal Influenza B PCR Nasal Influenza A PCR Nasal Parainfluen 1 PCR Nasal Parainfluen 2 PCR Nasal Parainfluen 3 PCR Nasal Parainfluen 4 PCR Nasal RSV (PCR) Nasal B.pertussis DNA PCR Nasal C.pneumoniae (PCR) Danial Human Metapneumo PCR Nasal M.pneumoniae (PCR) Nasal SARS-CoV-2 (PCR) Acetaminophen (10-30) ug/mL
[2021-06-27] MEDS: LACTATED RINGERS 1,000 ML IV SCH (17:49)
[2021-06-28] MEDS: ACETAMINOPHEN 500 MG TABLET PO PRN (01:57)
--- NOTE | 2021-06-28 08:20 | Discharge Plan ---
Discharge Plan Problem Reviewed?: Yes Disposition: Home, Self Care Condition: Good Diet: Regular Activity Restrictions: No Restrictions Shower Restrictions: No Driving Restrictions: No Instruction Topics: Preeclampsia No Smoking: If you smoke, Please STOP! Call for help. Follow-up with: Jacob Moya MD [Provider Admit Priv/Credential] -
--- NOTE | 2021-06-28 08:23 | DISCHARGE SUMMARY ---
Discharge Summary Admit Date: 06/26/21 Discharge Date: 06/28/21 Discharging Provider: Jacob Moya MD Code Status: Attempt Resuscitation Condition at Discharge: Good Discharge Disposition: 01 Home, Self Care - DIAGNOSES Admission Diagnoses: Preeclampsia with severe features Sciatica Discharge Diagnoses with Status of Each Condition: Preeclampsia with severe features- improved Sciatica- improved - HPI History of Present Illness: Patient doing well this morning. Denies headache, change in vision, right upper quadrant pain. Static pain is much better. Blood pressure remains normal overnight. Mild elevation this morning, but not in the treatable range. Desires to go home. Physical Temp Pulse Resp BP Pulse Ox 98.4 F 60 16 114/73 97 06/28/21 05:55 06/28/21 05:55 06/28/21 05:55 06/28/21 05:55 06/28/21 05:55 Constitutional: alert, no acute distress, well hydrated, well developed, well nourished, appropriate dress. Skin: normal turgor, normal color. Head: atraumatic, normocephalic. Cardiovascular: RRR. Respiratory: no respiratory distress. Abdomen: nondistended, nontender. Spine: normal mobility. Neurologic: normal, sensation intact, motor intact. Psych: affect and mood appropriate, normal interaction, good eye contact. 2+ DTRs, no clonus - HOSPITAL COURSE Hospital Course: Patient is a 30-year-old G2, P2 who presented 5 days due to severe range blood pressures and sciatic pain. She was admitted and treated with oral nifedipine for severe range blood pressures. She was started on magnesium sulfate for seizure prophylaxis. She received 1 dose of nifedipine orally and had no more persistently elevated blood pressures. After 24 hours of magnesium, she had no more symptoms. She stayed overnight without further elevations in blood pressure. She was let ambulate around the unit and simulate normal activities at home. She remained with normal blood pressures and discharged with close follow-up in clinic. If she has continued elevated blood pressures outside, will likely consider nifedipine extended release. She was discharged on hospital day 3 in good condition. - ALLERGIES Allergies/Adverse Reactions: Allergies Allergy/AdvReac Type Severity Reaction Status Date / Time No Known Drug Allergies Allergy Verified 06/26/21 17:28 - LABS Result Diagrams: 06/27/21 08:20 06/27/21 08:20 - FOLLOW UP Follow Up: 20
[2021-06-28 10:22] VITALS: BP 138/86
== END 2021-06-28 10:10 | disposition home or self-care (01) ==
LOC: ED 17:20 → FBP 21:26
PROVIDERS: ADMIT Obstetrics & Gynecology; ATTEND Obstetrics & Gynecology
DX: O14.15 Severe pre-eclampsia, complicating the puerperium (principal); O99.893 Other specified diseases and conditions complicating puerperium; M54.30 Sciatica, unspecified side; Z20.822 Contact with and (suspected) exposure to COVID-19
CPT/HCPCS: 0202U; 36415; 72132; 74177; 80053; 80307; 81001; 84156; 85025; 96365; 96366; 99284; 99285; A9270; G0378; J7120; Q9967; 81003; 87086

== ENCOUNTER 2021-08-14 16:19 | Emergency (ER) | payer OTHER ==
--- NOTE | 2021-08-14 17:19 | ED Physician Documentation ---
PD HPI CHEST PAIN - Stated complaint Stated Complaint: CHEST PX - Chief complaint Chief Complaint: Cardiac - History obtained from History obtained from: Patient - Additional information Additional information: This is a very pleasant at 8 weeks . She did have some preeclampsia treated with a magnesium drip but no home-going medications. For the last several weeks she has had some mild on and off chest pressure which is nonexertional and is worried about her blood pressures which have been averaging about 130/80. No personal history of hypertension other than the preeclampsia. Her mom has hypertension. Review of Systems Constitutional: denies: Fever, Chills Cardiac: denies: Palpitations Respiratory: denies: Dyspnea, Cough GI: denies: Abdominal Pain, Nausea, Vomiting PD PAST MEDICAL HISTORY - Past Medical History Cardiovascular: None Respiratory: None Neuro: None Endocrine/Autoimmune: None GI: None : None Psych: None Musculoskeletal: None Derm: None - Past Surgical History Ortho: Other - Present Medications Home Medications: Ambulatory Orders Medication Instructions Recorded Confirmed No Known Home Medications 08/14/21 08/14/21 - Allergies Allergies/Adverse Reactions: Allergies Allergy/AdvReac Type Severity Reaction Status Date / Time No Known Drug Allergies Allergy Verified 08/14/21 16:45 - Social History Smoking Status: Never smoker PD ED PE NORMAL - Vitals Vital signs reviewed: Yes - General General: Alert and oriented X 3, No acute distress - HEENT HEENT: PERRL, EOMI - Neck Neck: Supple, no meningeal sign, No bony TTP - Cardiac Cardiac: RRR, No murmur - Respiratory Respiratory: No respiratory distress, Clear bilaterally - Abdomen Abdomen: Normal bowel sounds, Soft, Non tender - Derm Derm: Normal color, Warm and dry - Extremities Extremities: No edema, No calf tenderness / cord - Neuro Neuro: Alert and oriented X 3, Normal speech Results - Vitals Vitals: Vital Signs - 24 hr 08/14/21 16:45 Temperature 37.1 C Heart Rate 84 Respiratory 19 Rate Blood Pressure 149/89 H O2 Saturation 100 Oxygen O2 Source Room air - EKG (time done) 1628 Rate: Rate (enter#) (89) Rhythm: NSR, LAE [place]: Normal Intervals: Normal [place] QRS: Normal Ischemia: Normal ST segments - Labs Labs: Laboratory Tests 08/14/21 08/14/21 08/14/21 17:09 17:09 17:21 WBC 7.6 RBC 4.64 Hgb 14.0 Hct 41.2 MCV 88.8 MCH 30.2 MCHC 34.0 RDW 12.6 Plt Count 280 MPV 10.0 Neut # (Auto) 5.1 Lymph # (Auto) 1.6 [place] # (Auto) 0.6 Eos # (Auto) 0.4 Baso # (Auto) 0.1 Absolute Nucleated RBC 0.00 Nucleated RBC % 0.0 Sodium Potassium Chloride Carbon Dioxide Anion Gap BUN Creatinine Estimated GFR (MDRD) Glucose Calcium Total Bilirubin AST ALT Alkaline Phosphatase Troponin I High Sens Total Protein Albumin Globulin Albumin/Globulin Ratio Urine Color LT. YELLOW Urine Clarity CLEAR Urine pH 6.0 Ur Specific [place] <=1.005 Urine Protein NEGATIVE Urine Glucose (UA) NEGATIVE Urine Ketones NEGATIVE Urine Occult Blood NEGATIVE Urine Nitrite NEGATIVE Urine Bilirubin NEGATIVE Urine Urobilinogen 0.2 (NORMAL) Ur Leukocyte Esterase NEGATIVE Ur Microscopic Review NOT INDICATED Urine Culture Comments NOT INDICATED U Random Total Protein < 6 Urine Creatinine 38.4 08/14/21 08/14/21 17:21 17:21 WBC RBC Hgb Hct MCV MCH MCHC RDW Plt Count MPV Neut # (Auto) Lymph # (Auto) [place] # (Auto) Eos # (Auto) Baso # (Auto) Absolute Nucleated RBC Nucleated RBC % Sodium 136 Potassium 3.6 Chloride 101 Carbon Dioxide 24 Anion Gap 11.0 BUN 11 Creatinine 0.6 Estimated GFR (MDRD) 116 Glucose 93 Calcium 9.5 Total Bilirubin 0.7 AST 36 ALT 72 H Alkaline Phosphatase 81 Troponin I High Sens 3.0 Total Protein 7.5 Albumin 4.4 Globulin 3.1 Albumin/Globulin Ratio 1.4 Urine Color Urine Clarity Urine pH Ur Specific [place] Urine Protein Urine Glucose (UA) Urine Ketones Urine Occult Blood Urine Nitrite Urine Bilirubin Urine Urobilinogen Ur Leukocyte Esterase Ur Microscopic Review Urine Culture Comments U Random Total Protein Urine Creatinine PD MEDICAL DECISION MAKING - ED course ED course: 30-year-old woman with mild chest pain in the setting of elevated blood pressure readings at home and being 8 weeks . Diagnostics here are negative except for a very mildly elevated ALT which was new compared with prior readings. Case discussed by phone with on-call OB, Dr. Casey who recommended starting antihypertensives and repeat labs in the clinic to recheck their liver enzymes. Patient did not want to start antihypertensives and prefers diet and exercise. On my repeat evaluation her blood pressure is 127/80 so I think this is reasonable. Departure - Departure Disposition: 01 Home, Self Care Clinical Impression: Elevated blood pressure reading, Atypical chest pain Condition: Good Record reviewed to determine appropriate education?: Yes Instructions: ED Chest Pain NonCardiac Follow-Up: [facility] [Provider Group] Comments: Keep an eye on your blood pressure, return if it worsens or if you develop other new or worrisome symptoms. As discussed, the only abnormal finding on your work-up today is an ALT of 72 which is just a bit high. The insole tape stitcher uco recommended getting this rechecked later in the week and she will notify the office but you should call them to make arrangements.
[2021-08-14 17:21] LABS: BILIRUBIN,URINE NEGATIVE (NEGATIVE); GLUCOSE, URINE (UA) NEGATIVE (NEGATIVE); KETONES,URINE (UA) NEGATIVE (NEGATIVE); LEUKOCYTE ESTERASE, URINE NEGATIVE (NEGATIVE); NITRITE,URINE NEGATIVE (NEGATIVE); OCCULT BLOOD,URINE NEGATIVE (NEGATIVE); PROTEIN,URINE NEGATIVE (NEGATIVE); UROBILINOGEN,URINE 0.2 (NORMAL) E.U./dL (NORMAL)
[2021-08-14 17:23] LABS: CLARITY,URINE CLEAR (CLEAR)
[2021-08-14 17:26] LABS: BASOPHILS # (AUTO) 0.1 10^3/uL (0.0-0.1); BASOPHILS % (AUTO) 0.9 %; EOSINOPHILS # (AUTO) 0.4 10^3/uL (0.0-0.7); EOSINOPHILS % (AUTO) 4.7 %; HCT - HEMATOCRIT 41.2 % (37.0-47.0); LYMPHOCYTES # (AUTO) 1.6 10^3/uL (1.5-3.5); LYMPHOCYTES % (AUTO) 20.6 %; MEAN CORPUSCULAR HEMOGLOBIN 30.2 pg (27.0-31.0); MEAN CORPUSCULAR VOLUME 88.8 fL (81.0-99.0); MONOCYTES # (AUTO) 0.6 10^3/uL (0.0-1.0); MONOCYTES % (AUTO) 7.2 %; NEUTROPHILS # (AUTO) 5.1 10^3/uL (1.5-6.6); NEUTROPHILS % (AUTO) 66.5 %; PLT - PLATELET COUNT 280 10^3/uL (130-450); RED BLOOD COUNT 4.64 10^6/uL (4.20-5.40); RED CELL DISTRIBUTION WIDTH 12.6 % (12.0-15.0); WHITE BLOOD COUNT 7.6 x10^3/uL (4.8-10.8)
[2021-08-14 17:41] LABS: CREATININE,URINE 38.4 mg/dL; TOTAL PROTEIN,URINE RANDOM < 6 mg/dL
[2021-08-14 17:51] LABS: ALBUMIN 4.4 g/dL (3.2-5.5); ALBUMIN/GLOBULIN RATIO 1.4 (1.0-2.2); BILIRUBIN,TOTAL 0.7 mg/dL (0.2-1.0); CALCIUM 9.5 mg/dL (8.5-10.3); CREATININE 0.6 mg/dL (0.4-1.0); POTASSIUM 3.6 mmol/L (3.5-5.0); TOTAL PROTEIN 7.5 g/dL (6.7-8.2)
[2021-08-14 18:37] VITALS: BP 133/93
== END 2021-08-14 18:37 | disposition home or self-care (01) ==
LOC: ED 16:19
DX: R07.9 Chest pain, unspecified (principal); R03.0 Elevated blood-pressure reading, without diagnosis of hypertension
CPT/HCPCS: 36415; 80053; 81001; 81003; 82570; 84156; 84484; 85025; 87086; 93005; 99282; 99283

== ENCOUNTER 2021-08-16 08:33 | Outpatient (CLI) | payer OTHER ==
[2021-08-16 08:58] LABS: BASOPHILS # (AUTO) 0.1 10^3/uL (0.0-0.1); BASOPHILS % (AUTO) 1.3 %; EOSINOPHILS # (AUTO) 0.6 10^3/uL (0.0-0.7); EOSINOPHILS % (AUTO) 9.3 %; HCT - HEMATOCRIT 43.1 % (37.0-47.0); HGB - HEMOGLOBIN 14.2 g/dL (12.0-16.0); LYMPHOCYTES # (AUTO) 1.6 10^3/uL (1.5-3.5); MEAN CORPUSCULAR HEMOGLOBIN 29.8 pg (27.0-31.0); MEAN CORPUSCULAR HGB CONC 32.9 g/dL (32.0-36.0); MEAN CORPUSCULAR VOLUME 90.5 fL (81.0-99.0); MONOCYTES # (AUTO) 0.6 10^3/uL (0.0-1.0); MONOCYTES % (AUTO) 8.8 %; NEUTROPHILS # (AUTO) 3.4 10^3/uL (1.5-6.6); NEUTROPHILS % (AUTO) 54.4 %; PLT - PLATELET COUNT 267 10^3/uL (130-450); RED BLOOD COUNT 4.76 10^6/uL (4.20-5.40); RED CELL DISTRIBUTION WIDTH 12.7 % (12.0-15.0); WHITE BLOOD COUNT 6.3 x10^3/uL (4.8-10.8)
[2021-08-16 09:11] LABS: ALBUMIN 4.5 g/dL (3.2-5.5); ALBUMIN/GLOBULIN RATIO 1.8 (1.0-2.2); BILIRUBIN,TOTAL 1.1 mg/dL (0.2-1.0); CREATININE 0.6 mg/dL (0.4-1.0); POTASSIUM 3.9 mmol/L (3.5-5.0)
== END 2021-08-16 08:34 | disposition home or self-care (01) ==
LOC: LAB 08:33
PROVIDERS: ATTEND Nurse Practitioner Obstetrics & Gynecology
DX: R10.11 Right upper quadrant pain (principal)
CPT/HCPCS: 36415; 80053; 85025

== ENCOUNTER 2021-08-24 10:21 | Outpatient (CLI) | payer OTHER ==
[2021-08-24 10:57] LABS: ALBUMIN 4.5 g/dL (3.2-5.5); ALBUMIN/GLOBULIN RATIO 1.5 (1.0-2.2); BILIRUBIN,TOTAL 0.9 mg/dL (0.2-1.0); CALCIUM 9.5 mg/dL (8.5-10.3); CREATININE 0.7 mg/dL (0.4-1.0); POTASSIUM 4.2 mmol/L (3.5-5.0); TOTAL PROTEIN 7.5 g/dL (6.7-8.2)
== END 2021-08-24 10:22 | disposition home or self-care (01) ==
LOC: LAB 10:21
PROVIDERS: ATTEND Nurse Practitioner Obstetrics & Gynecology
DX: O13.9 Gestational [pregnancy-induced] hypertension without significant proteinuria, unspecified trimester (principal)
CPT/HCPCS: 36415; 80053